=== PATIENT | male | born 1985 | race Caucasian/White ===

== ENCOUNTER 2016-10-02 16:49 | Emergency (ER) | payer MEDICAID ==
[2016-10-02] MEDS ORDERED: NS 1,000 ML IV ONE (17:35)
[2016-10-02] MEDS ORDERED: KETOROLAC 30 MG/1 ML SDV IVP ONE (17:35)
--- NOTE | 2016-10-02 17:38 | EDPHY ---
H & P Time Seen by Provider: 10/02/16 16:57 HPI/ROS: CHIEF COMPLAINT: right testicular plain, bilateral low back pain HISTORY OF PRESENT ILLNESS: Patient is a 31-year-old male with no past medical history presents to the emergency department with right testicular pain. His testicle pain started a few days ago. It is persistently worsened. Today he woke up in his testicular pain was gone. However, it was replaced with low back pain. Patient describes bilateral lower back pain. This is slightly worse on the right when compared with the left. He has no dysuria, frequency or hematuria. Patient is sexually active and monogamous. He has had no penile discharge. No rash. No fevers or chills. No nausea vomiting or diarrhea. Patient has a no recent trauma. REVIEW OF SYSTEMS: My complete review of systems is negative except as mentioned in the HPI. Past Medical/Surgical History: Negative Past surgical history: Negative Smoking Status: Never smoked Physical Exam: Vitals noted GENERAL: Well-appearing, in no acute distress, alert. HEENT: Eyes normal to inspection, normal pharynx, no signs of dehydration. NECK: No thyromegaly, no lymphadenopathy, supple. RESPIRATORY: Clear to auscultation bilaterally, no rales, rhonchi or wheezing. CVS: Regular rate and rhythm, no rubs, murmurs, or gallops. ABDOMEN: Soft, nontender, nondistended, no organomegaly. : Patient is circumcised. Penis appears normal. No tenderness palpation. His testicles are normal appearing. No palpable mass or tenderness to palpation. Positive cremaster reflex BACK: Normal to inspection, no CVA tenderness. SKIN: Normal color, no rash, warm, dry. No pallor. EXTREMITIES: No pedal edema, normal appearing. NEURO/PSYCH: Alert and oriented x3, normal mood and affect Constitutional: Initial Vital Signs Temperature (C) 37.1 C 10/02/16 16:50 Heart Rate 80 10/02/16 16:50 Respiratory Rate 16 10/02/16 16:50 Blood Pressure 137/90 H 10/02/16 16:50 O2 Sat (%) 97 10/02/16 16:50 O2 Delivery Mode Room Air Allergies/Adverse Reactions: No Known Allergies Allergy (Unverified 10/02/16 16:52) Medical Decision Making ED Course/Re-evaluation: In the emergency department I discussed possible etiologies with the patient. He agreed with the plan and answered all his questions. IV was placed. The patient was given Toradol 30 mg IV for pain control. Testicular ultrasound, noncontrast CT, laboratory studies were ordered. Patient's CBC and UA were normal Chemistry and renal function is normal CT: Please refer the dictated report by Dr. Salguero. No acute disease noted. Ultrasound: Please refer the dictated report by Dr. Salguero. Patient has a small varicocele on the left testicle. Right testicle is normal. No acute disease. I discussed the results with the patient. I gave him warnings. He will follow up with Urology. He will return with increasing pain, swelling, redness, dysuria, frequency or any other concerns. The patient felt comfortable with this plan. Differential Diagnosis: My differential includes but is not limited to testicular torsion, epididymitis , orchitis, urinary tract infection, kidney stone, STD, malignancy, mass - Data Points Laboratory Results: Laboratory Results 10/02/16 17:45 10/02/16 17:45 10/02/16 10/02/16 17:45 16:50 WBC 7.78 10^3/uL (3.80-9.50) RBC 4.82 10^6/uL (4.40-6.38) Hgb 14.0 g/dL (13.7-17.5) Hct 40.9 % (40.0-51.0) MCV 84.9 fL (81.5-99.8) MCH 29.0 pg (27.9-34.1) MCHC 34.2 g/dL (32.4-36.7) RDW 13.2 % (11.5-15.2) Plt Count 293 10^3/uL (150-400) MPV 9.5 fL (8.7-11.7) Neut % (Auto) 55.6 % (39.3-74.2) Lymph % (Auto) 32.6 % (15.0-45.0) [place] % (Auto) 8.9 % (4.5-13.0) Eos % (Auto) 2.3 % (0.6-7.6) Baso % (Auto) 0.5 % (0.3-1.7) Nucleat RBC Rel Count 0.0 % (0.0-0.2) Absolute Neuts (auto) 4.32 10^3/uL (1.70-6.50) Absolute Lymphs (auto) 2.54 10^3/uL (1.00-3.00) Absolute Monos (auto) 0.69 10^3/uL (0.30-0.80) Absolute Eos (auto) 0.18 10^3/uL (0.03-0.40) Absolute Basos (auto) 0.04 10^3/uL (0.02-0.10) Absolute Nucleated RBC 0.00 10^3/uL (0-0.01) Immature Gran % 0.1 % (0.0-1.1) Immature Gran # 0.01 10^3/uL (0.00-0.10) Sodium 138 mEq/L (134-144) Potassium 4.1 mEq/L (3.5-5.2) Chloride 101 mEq/L (97-110) Carbon Dioxide 28 mEq/l (22-31) Anion Gap 9 mEq/L (8-16) BUN 13 mg/dL (7-23) Creatinine 0.9 mg/dL (0.7-1.3) Estimated GFR > 60 Glucose 84 mg/dL (70-100) Calcium 9.1 mg/dL (8.5-10.4) Urine Color YELLOW Urine Appearance HAZY Urine pH 8.0 H (5.0-7.5) Ur Specific [place] 1.011 (1.002-1.030) Urine Protein NEGATIVE (NEGATIVE) Urine Ketones NEGATIVE (NEGATIVE) Urine Blood NEGATIVE (NEGATIVE) Urine Nitrate NEGATIVE (NEGATIVE) Urine Bilirubin NEGATIVE (NEGATIVE) Urine Urobilinogen NEGATIVE EU (0.2-1.0) Ur Leukocyte Esterase NEGATIVE (NEGATIVE) Ur Culture Indicated? NOT INDICATED (NI) Urine Glucose NEGATIVE (NEGATIVE) Medications Given: Discontinued Medications Sodium Chloride (Ns) 1,000 mls @ 0 mls/hr IV ONCE ONE PRN Reason: Wide Open Stop: 10/02/16 17:36 Last Admin: 10/02/16 17:49 Dose: 1,000 mls Ketorolac Tromethamine (Toradol) 30 mg IVP EDNOW ONE Stop: 10/02/16 17:36 Last Admin: 10/02/16 17:48 Dose: 30 mg Departure - Departure Disposition: Home, Routine, Self-Care Clinical Impression: Right testicular pain Condition: Good Instructions: Testicle Pain (ED) Additional Instructions: Your ultrasound was normal. Your laboratory studies and urine studies were normal. You need follow-up with Urology. Return with increasing pain, swelling , redness, fever, pain with urination, blood in urine or any other concerns. Referrals: Kaleb Cullen MD [Medical Doctor] - 5-7 days, call for appt.
[2016-10-02 17:46] LABS: COLOR YELLOW; LEUKOCYTE ESTERASE,URINE NEGATIVE (NEGATIVE); NITRITE,URINE NEGATIVE (NEGATIVE)
[2016-10-02 18:03] LABS: % IMMATURE GRANULYOCYTES 0.1 % (0.0-1.1); ABSOLUTE IMMATURE GRANULOCYTES 0.01 10^3/uL (0.00-0.10); ADD DIFF? NO; ADD MORPH? NO; ADD SCAN? NO; ATYPICAL LYMPHOCYTE FLAG 40 (0-99); FRAGMENT RBC FLAG 0 (0-99); HEMATOCRIT 40.9 % (40.0-51.0); LEFT SHIFT FLG 0 (0-99); LIPEMIA HEMOLYSIS FLAG 90 (0-99); MEAN CELL HEMOGLOBIN CONCENTR. 34.2 g/dL (32.4-36.7); MEAN CELL VOLUME 84.9 fL (81.5-99.8); MEAN PLATELET VOLUME 9.5 fL (8.7-11.7); PLATELET CLUMPS FLAG 0 (0-99); PLATELET COUNT 293 10^3/uL (150-400); RED BLOOD CELL COUNT 4.82 10^6/uL (4.40-6.38); RED CELL DISTRIBUTION WIDTH 13.2 % (11.5-15.2)
[2016-10-02 18:18] LABS: ANION GAP 9 mEq/L (8-16); CALCIUM 9.1 mg/dL (8.5-10.4); CARBON DIOXIDE 28 mEq/l (22-31); CHLORIDE 101 mEq/L (97-110); CREATININE 0.9 mg/dL (0.7-1.3); GLOMERULAR FILTRATION RATE > 60; GLUCOSE 84 mg/dL (70-100); POTASSIUM 4.1 mEq/L (3.5-5.2); SODIUM 138 mEq/L (134-144)
--- NOTE | 2016-10-02 18:30 | CT ---
CT Scan of the Abdomen and Pelvis (Without IV Contrast) Clinical Indications: Back and testicular pain. Technique: No intravenous contrast was given. Multidetector helical CT imaging is performed from th e diaphragm to the symphysis pubis. Dose reduction techniques were utilized. Findings: Abdomen: The lung bases are clear, and there is no significant pleural fluid. There is a small hiat al hernia. The liver is normal. No calcifications are seen in the gallbladder. The pancreas and spl een are normal. The adrenal glands and kidneys are normal. The aorta tapers normally. No stones ar e found. Pelvis: The urinary bladder is unremarkable. No free fluid in the pelvis. No masses are identifie d. Phleboliths are noted in the pelvis. Mild degenerative changes of the spine are present. Impression: Normal CT of the abdomen and pelvis without IV contrast. Critical results relayed by Dr. Saul Salguero to Dr. Ivon Oreilly on October 02, 2016, at 1823 hour s.
[2016-10-02 19:10] VITALS: TEMP 98.1
--- NOTE | 2016-10-02 19:18 | US ---
Testicular Sonogram Clinical Indications: Testicular pain. Technique: Scrotal contents were imaged with the high-resolution transducer. Color and pulsed Doppl er were recorded on each side. Findings: The right testicle measures 2.8 x 2.8 x 4.8 cm. It is normal in size, morphology and echot exture. It exhibits normal flow and a normal resistive index of 0.51. There is no hypervascularity. Left testicle measures 3.4 x 2.6 x 5.0 cm. It is normal in size, morphology and echotexture. Normal f low is present with a resistive index is 0.56. There is a small left varicocele. There are epididymal cysts bilaterally, the largest is 5 mm. Impression: 1. Bilateral epididymal cysts. 2. Small left varicocele. Critical results relayed by Dr. Saul Salguero to Dr. Ivon Oreilly on October 02, 2016 at 1914 hours .
[2016-10-02 19:26] VITALS: BP 135/82; PULSE 70; RESP 16; O2SAT 96
== END 2016-10-02 19:36 | disposition home or self-care (01) ==
DX: N50.811 Right testicular pain (principal)
CPT/HCPCS: 96374; J1885